=== PATIENT | male | born 1980 | race Caucasian/White ===

== ENCOUNTER 2016-10-26 11:20 | Emergency (ER) | payer OTHER ==
[~2016-10-26 11:20] MED LIST: IBUPROFEN800 MG
== END 2016-10-26 12:42 ==
LOC: EDMED 11:20
PROC: 0HQFXZZ Repair Right Hand Skin, External Approach (ICD-10-PCS; principal; 2016-10-26)
DX: S61.411A Laceration without foreign body of right hand, initial encounter (principal); V87.8XXA Person injured in other specified noncollision transport accidents involving motor vehicle (traffic), initial encounter; Y92.410 Unspecified street and highway as the place of occurrence of the external cause